=== PATIENT | male | born 1965 | race Hispanic/Latino ===

== ENCOUNTER 2018-03-23 18:08 | Emergency (ER) | payer BC ==
[~2018-03-23] VITALS: Ht 172.7 cm; Wt 99.8 kg
[2018-03-23] MEDS ORDERED: HYDROCODONE/APAP 10MG-325MG TAB PO ONE (18:30)
[2018-03-23] MEDS ORDERED: LIDOCAINE HCL 1% LOCAL INJ 20 ML VIAL INJ ONE (18:30)
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
[2018-03-23] MEDS ORDERED: CEFAZOLIN SOD 1 GM VIAL IM SCH (20:00)
[2018-03-23] MEDS ORDERED: TETANUS/DIPHTHERIA TOX ADULT 0.5 ML SYR ONE (21:18)
[2018-03-23] MEDS ORDERED: TETANUS/DIPHTHERIA TOX ADULT 0.5 ML SYR IM ONE (21:30)
== END 2018-03-23 21:51 | disposition home or self-care (01) ==
LOC: ER 18:08
DX: S92.425B Nondisplaced fracture of distal phalanx of left great toe, initial encounter for open fracture (principal); S97.112A Crushing injury of left great toe, initial encounter; S98.122A Partial traumatic amputation of left great toe, initial encounter; Y99.0 Civilian activity done for income or pay; I10 Essential (primary) hypertension; E11.9 Type 2 diabetes mellitus without complications
CPT/HCPCS: 12042; 73630; 90471; 90714; 99283; J0690; J2001